=== PATIENT | female | born 1995 | race Hispanic/Latino ===

== ENCOUNTER 2016-08-05 10:24 | Outpatient (CLI) | payer OTHER ==
--- NOTE | 2016-08-05 11:07 | Ultrasound Report ---
Sonogram right breast including palpable area: History: Unspecified lump in breast. Findings: No cystic or solid mass identified. Impression: Essentially negative sonogram.
== END 2016-08-05 10:25 | disposition home or self-care (01) ==
LOC: US 10:24
PROVIDERS: ATTEND Internal Medicine
DX: N63 Unspecified lump in breast (principal)